=== PATIENT | female | born 1945 | race Caucasian/White ===

== ENCOUNTER 2017-02-05 10:38 | Emergency (ER) | payer MEDICARE ==
--- NOTE | ~2017-02-05 | CN ---
Consultation Report [facility] [address] [place]. [address] NAME: RAJNI RHOADES : 41 STATUS : [facility] PAT#: [id number] AGE: 71 ADM/REG DATE : 02/05/17 MR#: [id number] REPORT SERV DATE: 02/06/17 DICTATED BY: GEOFFREY RIVAS DATE: 02/05/17 REPORT STATUS : Draft TRANSCRIBED BY: PATRIA DATE: 02/05/17 DATE OF CONSULTATION: ADDENDUM: ASSESSMENT AND PLAN: It looks like this lady has atherosclerosis of her left upper extremity, but is asymptomatic. She has atherosclerosis of her bilateral lower extremities with ischemic rest pain on the left side and claudication on the right side. I talked to her about the risks, benefits, and alternatives of angiography with intervention. We even talked about open bypass. She understands her risk of limb loss and she understands her cardiovascular risk. I am starting her on a statin. She needs to take an aspirin a day. I will have her call our office and arrange a time for an arteriogram with possible intervention. She did understand everything that I was talking about, as did her daughter. Her daughter apparently is a health worker at [facility]. If they want more information, I would be happy to see her back in the office and discuss this with her further. We have handouts there available for her to review. Otherwise, she has been scheduled a bilateral lower extremity arteriogram with possible left lower extremity intervention at the venue of her choice. I have asked her to follow up with a primary care physician. It sounds like she was willing to establish care at [facility] but just cancels her appointment. I have encouraged her to make an appointment again. EJ/PATRIA Geoffrey Rivas M.D. / [phone]
--- NOTE | ~2017-02-05 | CN ---
Consultation Report [facility] [address] [place]. [address] NAME: RAJNI RHOADES : 41 STATUS : [facility]#: [id number] AGE: 71 ADM/REG DATE : 02/05/17 MR#: [id number] REPORT SERV DATE: 02/06/17 DICTATED BY: GEOFFREY RIVAS DATE: 02/05/17 REPORT STATUS : Draft TRANSCRIBED BY: PATRIA DATE: 02/05/17 DATE OF CONSULTATION: 02/05/2017 REASON FOR CONSULTATION: Evaluation for bilateral lower extremity ischemia. BRIEF HISTORY: The patient is a 71-year-old female with a past medical history that is unknown as the patient does not normally seek medical care. She has a remote history of tobacco abuse and has had a long-standing history of bilateral calf claudication particularly when she cuts the grass. As her symptoms have worsened and then she has developed cyanosis of the toes on her left foot, she came in for further evaluation and treatment. The patient complains of pain in both of her calves when she walks. She sometimes has pain in the feet that awakens her at night. There are no aggravating or alleviating factors other than this. She denies any nonhealing wounds. She is able to sleep through most nights. PAST MEDICAL HISTORY: None. SURGICAL HISTORY: None. SOCIAL HISTORY: She has a remote history of tobacco abuse. She quit many years ago. She drinks socially. She denies any drug use. FAMILY HISTORY: Unremarkable. MEDICATIONS: None. ALLERGIES: NONE. REVIEW OF SYSTEMS: A complete review of systems was performed and is negative with the exception of the aforementioned findings. PHYSICAL EXAMINATION: VITAL SIGNS: Documented on the chart and were reviewed. GENERAL: The patient is awake, alert, and oriented; in no apparent distress. HEAD AND NECK: Benign without any carotid bruits. HEART: Regular rate and rhythm. LUNGS: Clear. ABDOMEN: Soft, nontender, nondistended, with a nonaneurysmal aorta. EXTREMITIES: She has a normal complement of right upper extremity pulses without any significant edema or ischemic ulcerations. I do not feel left upper extremity pulses. She has no significant edema or ischemic ulcerations. She has palpable femoral pulses, but nonpalpable pulses distally. She has cyanosis on her 2nd, 3rd, and 4th toes on her left foot. She has no ischemic ulcerations. She does have some rubor of her left foot without cellulitis. Consultation Report [facility] [id number] [place]. [address] NAME: RAJNI RHOADES : 41 STATUS : [facility] PAT#: [id number] AGE: 71 ADM/REG DATE : 02/05/17 MR#: [id number] REPORT SERV DATE: 02/06/17 DICTATED BY: GEOFFREY RIVAS DATE: 02/05/17 REPORT STATUS : Draft TRANSCRIBED BY: PATRIA DATE: 02/05/17 NEUROLOGICAL: Grossly nonfocal. MUSCULOSKELETAL: Otherwise benign. LABORATORY DATA: Laboratory investigations are still pending. She underwent a noninvasive study that suggests that she has abnormal ankle-brachial indices and a blood pressure discrepancy between her two arms suggesting atherosclerosis of her upper extremities as well as her lower extremities. ASSESSMENT AND PLAN: It looks like this lady has atherosclerosis of her left upper extremity, but is asymptomatic. She has atherosclerosis of her bilateral lower extremities with ischemic rest pain on the left side and claudication on the right side. I talked to her about the risks, benefits, and alternatives of angiography with intervention. We even talked about open bypass. She understands her risk of limb loss and she understands her cardiovascular risk. I am starting her on a statin. She needs to take an aspirin a day. I will have her call our office and arrange a time for an arteriogram with possible intervention. She did understand everything that I was talking about, as did her daughter. Her daughter apparently is a health worker at [employer]. If they want more information, I would be happy to see her back in the office and discuss this with her further. We have handouts there available for her to review. Otherwise, she has been scheduled a bilateral lower extremity arteriogram with possible left lower extremity intervention at the venue of her choice. I have asked her to follow up with a primary care physician. It sounds like she was willing to establish care at [facility] but just cancels her appointment. I have encouraged her to make an appointment again. EJ/PATRIA Geoffrey Rivas M.D. / [phone]
[2017-02-05 11:08] LABS: BASOPHILS 0.3 %; BASOPHILS ABSOLUTE 0.02 10/3/uL (0.0-0.16); EOSINOPHILS 0.3 %; EOSINOPHILS ABSOLUTE 0.02 10/3/uL (0.0-0.53); HEMATOCRIT 44.9 % (36.0-48.0); HEMOGLOBIN 15.7 g/dL (12.0-16.0); IMMATURE GRANULOCYTES 0.4 %; IMMATURE GRANULOCYTES ABSOLUTE 0.03 10/3/uL (0.0-0.11); LYMPHOCYTES 13.6 %; LYMPHOCYTES ABSOLUTE 1.06 10/3/uL (0.67-4.30); MEAN CORPUSCULAR HEMOGLOB 33.9 pg (26.0-34.0); MEAN PLATELET VOLUME 10.6 fL (9.2-13.0); MONOCYTES 8.9 %; MONOCYTES ABSOLUTE 0.69 10/3/uL (0.21-1.20); NEUTROPHILS 76.5 %; NEUTROPHILS ABSOLUTE 5.97 10/3/uL (2.02-8.40); PLATELET COUNT 189 10/3/uL (150-400); RBC DISTRIBUTION WIDTH 11.8 % (12.0-16.0); RED CELL COUNT 4.63 10/6/uL (4.0-5.6); WHITE BLOOD CELLS 7.8 10/3/uL (4.5-10.5)
[2017-02-05 11:09] LABS: MANUAL DIFF NO %
[2017-02-05 11:15] LABS: PARTIAL THROMBO TIME 29.1 SEC (22.5-37.2); PROTIME (NOT ORD) 13.3 SEC (12.0-14.5)
[2017-02-05 11:22] LABS: A/G RATIO 0.8 (0.7-1.9); ALBUMIN 3.4 G/DL (3.5-5.0); ALKALINE PHOSPHATASE 96 U/L (45-117); BUN (BLOOD UREA NITROGEN) 9 MG/DL (6-23); CALCIUM, SERUM 9.5 MG/DL (8.5-10.4); CHLORIDE, SERUM 106 MMOL/L (96-112); CO2 (CARBON DIOXIDE) 30 MMOL/L (24-34); CREATININE 0.73 MG/DL (0.55-1.02); GFR AFRICAN AMERICAN 95 ML/MIN (>=60); GFR NON AFRICAN AMERICAN 82 ML/MIN (>=60); GLOBULIN 4.5 G/DL (2.5-4.1); GLUCOSE, SERUM 79 MG/DL (60-99); SGPT(ALT) 13 U/L (5-65); SODIUM, SERUM 143 MMOL/L (135-148); TOTAL BILIRUBIN 0.6 MG/DL (0-1.2); TOTAL PROTEIN 7.9 G/DL (6.0-8.5)
[2017-02-05 11:24] LABS: POTASSIUM, SERUM 3.7 MMOL/L (3.5-5.3); SGOT(AST) 31 U/L (5-40)
[2017-02-05] MEDS ORDERED: ASAB PO (12:59)
== END 2017-02-05 15:45 | disposition admitted as inpatient to this hospital (09) ==
LOC: ER 10:38
PROVIDERS: Hospitalist
DX: I73.9 Peripheral vascular disease, unspecified (principal); Z87.891 Personal history of nicotine dependence; Z79.82 Long term (current) use of aspirin
CPT/HCPCS: 80053; 85025; 85610; 85730; 93925; 96365; 99285